=== PATIENT | male | born 1990 | race Caucasian/White ===

== ENCOUNTER 2017-07-06 11:56 | Observation (INO) | payer OTHER ==
--- NOTE | 2017-07-06 12:53 | EDPHY ---
H & P Stated Complaint: cat bite r arm/hand sat seen [facility]/on augmentin/not better Time Seen by Provider: 07/06/17 12:53 HPI/ROS: HPI: This is a 27-year-old male who presents with Chief Complaint: cat bite r arm/hand sat seen [facility]/on augmentin/not better Location: Right hand Quality: Cat bite Duration: Infection Signs and Symptoms: No bleeding, no radiation, no numbness, no weakness, no tingling, no incontinence, no decreased range of motion, no swelling, no pain Timing: Worsening Severity: Moderate Context: Patient is right-hand dominant, bit by a cat of his friends Tuesday evening. CT was up-to-date on vaccinations. Went to [facility] on Tuesday; given tetanus booster and started on Augmentin. Patient reports there is no improvement in the infection in his hand since that time. [facility] and they were concerned so sent to the emergency room. Patient reports worsening pain/warmth/redness since Tuesday. Denies paresthesias/weakness. Modifying Factors: See above Comment: ROS: see HPI Constitutional: No fever, no chills, no weight loss Eyes: No blurred vision Respiratory: No shortness of breath, no cough Cardiovascular: No chest pain Gastrointestinal: No nausea, no vomiting no diarrhea Genitourinary: No dysuria Extremities: No myalgias Neurologic: No weakness, no numbness Skin: No rashes Hematologic: No bruising, no bleeding MEDICAL/SURGICAL/SOCIAL HISTORY: Medical history: Generally healthy. Does not take any regular medications. Surgical history: Denies Social history: Student CONSTITUTIONAL: Polite and cooperative young adult white male, awake and alert , no obvious distress HEENT: Atraumatic and normocephalic, PERRL, EOMI. Tympanic membranes clear. Oropharynx clear, no exudate and moist pink mucosa. Airway patent. No lymphadenopathy. No meningismus. Cardiovascular: Normal S1/S2, regular rate, regular rhythm, without murmur rub or gallop. PULMONARY/CHEST: Symmetrical and nontender. Clear to auscultation bilaterally. Good air movement. No accessory muscle usage. ABDOMEN: Soft, nondistended, nontender, no rebound, no guarding, no peritoneal signs, no masses or organomegaly. No CVAT. EXTREMITIES: 2/2 pulses, strength 5/5, right hand dorsal aspect shows moderate/ erythema/warm/tenderness extending into fingers; appreciate to bite camacho with some increased induration around the; not able to palpate any fluctuance; no deformities, no clubbing, no cyanosis or edema. NEUROLOGICAL: no focal neuro deficits. GCS 15. SKIN: Warm and dry, no erythema. no rash. Good capillary refill. Source: Patient Exam Limitations: No limitations - Personal History Current Tetanus/Diphtheria Vaccine: Yes - Medical/Surgical History Hx Asthma: No Hx Chronic Respiratory Disease: No Hx Diabetes: No Hx Cardiac Disease: No Hx Renal Disease: No Hx Cirrhosis: No Hx Alcoholism: No Hx HIV/AIDS: No Hx Splenectomy or Spleen Trauma: No Other PMH: denies - Social History Smoking Status: Never smoked Constitutional: Initial Vital Signs Temperature (C) 36.8 C 07/06/17 11:59 Heart Rate 73 07/06/17 11:59 Respiratory Rate 18 07/06/17 11:59 Blood Pressure 141/78 H 07/06/17 11:59 O2 Sat (%) 94 07/06/17 11:59 O2 Delivery Mode Room Air Allergies/Adverse Reactions: No Known Allergies Allergy (Unverified 07/06/17 11:58) Home Medications: Medication Instructions Recorded Augmentin 875 MG TAB (*) 07/06/17 Medical Decision Making ED Course/Re-evaluation: Labs, blood cultures, IV medications ordered Given 1 L normal saline and IV clindamycin No signs of neurovascular compromise/tenting of skin/compartment syndrome/ extremities and joints examined above and below area of concern and are neurovascularly intact. Patient has failed outpatient medication therapy and will need to be admitted to the hospital for IV antibiotics, hand consult. 1345: ED decision to consult for admission. Spoke with Isha who assigns patient to Dr. Powell. Remaining labs pending at time of consult. This patient was seen under the supervision of my secondary supervising physician. I evaluated care for this patient independently. Discussed this patient with Dr. Reyes who did not see the patient. Differential Diagnosis: Differential diagnosis includes but is not limited to cellulitis, abscess, thrombophlebitis. - Data Points Laboratory Results: Laboratory Results 07/06/17 13:08 07/06/17 07/06/17 07/06/17 13:08 13:08 13:08 WBC 5.36 10^3/uL 10^3/uL (3.80-9.50) RBC 5.48 10^6/uL 10^6/uL (4.40-6.38) Hgb 17.1 g/dL g/dL (13.7-17.5) Hct 47.6 % % (40.0-51.0) MCV 86.9 fL fL (81.5-99.8) MCH 31.2 pg pg (27.9-34.1) MCHC 35.9 g/dL g/dL (32.4-36.7) RDW 12.2 % % (11.5-15.2) Plt Count 220 10^3/uL 10^3/uL (150-400) MPV 9.6 fL fL (8.7-11.7) Neut % (Auto) 59.5 % % (39.3-74.2) Lymph % (Auto) 30.8 % % (15.0-45.0) [place] % (Auto) 7.1 % % (4.5-13.0) Eos % (Auto) 1.7 % % (0.6-7.6) Baso % (Auto) 0.7 % % (0.3-1.7) Nucleat RBC Rel Count 0.0 % % (0.0-0.2) Absolute Neuts (auto) 3.19 10^3/uL 10^3/uL (1.70-6.50) Absolute Lymphs (auto) 1.65 10^3/uL 10^3/uL (1.00-3.00) Absolute Monos (auto) 0.38 10^3/uL 10^3/uL (0.30-0.80) Absolute Eos (auto) 0.09 10^3/uL 10^3/uL (0.03-0.40) Absolute Basos (auto) 0.04 10^3/uL 10^3/uL (0.02-0.10) Absolute Nucleated RBC 0.00 10^3/uL 10^3/uL (0-0.01) Immature Gran % 0.2 % % (0.0-1.1) Immature Gran # 0.01 10^3/uL 10^3/uL (0.00-0.10) ESR 5 MM/HR MM/HR (0-15) VBG Lactic Acid 1.8 mmol/L mmol/L (0.7-2.1) Sodium Pending Potassium Pending Chloride Pending Carbon Dioxide Pending Anion Gap Pending BUN Pending Creatinine Pending Estimated GFR Pending Glucose Pending Calcium Pending C-Reactive Protein Pending Medications Given: Discontinued Medications Clindamycin Phosphate/Dextrose (Cleocin 600 Mg (Premix)) 50 mls @ 100 mls/hr IV EDNOW ONE PRN Reason: Protocol Stop: 07/06/17 13:27 Last Admin: 07/06/17 13:28 Dose: 50 mls Sodium Chloride (Ns) 1,000 mls @ 0 mls/hr IV ONCE ONE; Wide Open PRN Reason: Protocol Stop: 07/06/17 12:59 Last Admin: 07/06/17 13:28 Dose: 1,000 mls Departure - Departure Disposition: [facility] Inpatient Acute Clinical Impression: Cellulitis of right hand Cat bite of hand Qualifiers: Encounter type: initial encounter Laterality: right Qualified Code(s): S61.451A - Open bite of right hand, initial encounter; W55.01XA - Bitten by cat , initial encounter; W55.01XA - Bitten by cat, initial encounter Condition: Fair
[2017-07-06] MEDS ORDERED: NS 1,000 ML IV ONE (12:58)
[2017-07-06] MEDS ORDERED: CLINDAMYCIN 600 MG/DEXTROSE 50 ML IV ONE (12:58)
[2017-07-06 13:19] LABS: PLATELET COUNT 220 10^3/uL (150-400)
[2017-07-06] MEDS ORDERED: ACETAMINOPHEN 325 MG TAB PO PRN (14:34)
[2017-07-06] MEDS ORDERED: ONDANSETRON 4 MG/2 ML VIAL IVP PRN (14:34)
[2017-07-06] MEDS ORDERED: ONDANSETRON DISINTEGRATING 4 MG TAB PO PRN (14:34)
--- NOTE | 2017-07-06 14:54 | GHP ---
[f rep st] HISTORY AND PHYSICAL DATE OF ADMISSION: 07/06/2017 CHIEF COMPLAINT: Cat bite right wrist. HISTORY OF PRESENT ILLNESS: A 27-year-old had a cat bite on right wrist 5 days ago. ____ started antibiotics 2 days ago and has not had much improvement. denies any fevers or chills. can move fingers fairly normally. No other complaints. REVIEW OF SYSTEMS: A 10-point review of systems was obtained, and other than as stated, was negative . PAST MEDICAL HISTORY: None. MEDICATIONS: Advil, Tylenol, and Augmentin. SOCIAL HISTORY: No smoking. Occasional alcohol. FAMILY HISTORY: Reviewed, noncontributory. PHYSICAL EXAM: VITAL SIGNS: Afebrile, blood pressure is 141/78, heart rate 73, oxygen saturation 94 % on room air. GENERAL: The patient is well developed, no apparent distress. HEENT: Nonicteric sc lerae. Extraocular movements intact. Moist mucous membranes. NECK: Supple. No thyromegaly. LUNG S: Good effort. Clear to auscultation bilaterally. CARDIOVASCULAR: Regular rate and rhythm. No m urmurs, gallops. ABDOMEN: Positive bowel sounds. Soft, nontender, nondistended. No hepatosplenome remedios. EXTREMITIES: Right wrist has puncture camacho and erythema that is extending several inches on either side. Erythema looks more inflammatory than cellulitic. is able to move all 4 dig its normally and has a 2+ radial pulse. NEUROLOGIC: Alert and oriented x3. Moving all 4 extremitie s equally. PSYCH: Normal mood and affect. LABS: White blood cell count not elevated at all. Lactate is normal. Chemistries normal. CRP is l ess than 5. ASSESSMENT: This is a 27-year-old presenting with a cat bite. PLAN: Cat bite with probable cellulitis. I actually think that a lot of the erythema is more inflam matory than actual infection. The patient has been given IV clindamycin, but will continue with the beta-lactam and give IV Unasyn while is here in the hospital. We will continue to use ant i-inflammatories and see how is feeling. I also ordered a procalcitonin to see where that may be. Probably can discharge tomorrow. /[id number]/MODL
[2017-07-06 16:07] VITALS: RESP 16
[2017-07-06] MEDS: KETOROLAC 15 MG/1 ML SDV IVP SCH ×2 (17:44→23:45)
[2017-07-06] MEDS: AMPICILLIN/SULBACTAM 3 GM VIAL IV SCH ×2 (17:52→23:46)
[2017-07-06 23:08] VITALS: O2SAT 98
[2017-07-07] MEDS: KETOROLAC 15 MG/1 ML SDV IVP SCH (05:51)
[2017-07-07] MEDS: AMPICILLIN/SULBACTAM 3 GM VIAL IV SCH (05:52)
[2017-07-07 07:44] VITALS: BP 136/95; PULSE 68; TEMP 97.6
--- NOTE | 2017-07-07 14:49 | GDS ---
[f rep st] DISCHARGE SUMMARY DISCHARGE DIAGNOSIS: Cat bite with right wrist cellulitis. HISTORY: This is a 27-year-old male who had a cat bite several days ago and had been started on Augm entin 2 days prior to admission with worsening redness. HOSPITAL COURSE: Patient was admitted. His hand looked more inflammatory than cellulitic. White co unt was normal, and he had no fever. Actually, his procalcitonin was also normal. He was treated wi th IV Unasyn, as well as nonsteroidals. The following day, his hand looked much better. I think shey t he can be managed outpatient with oral antibiotics. FOLLOWUP INSTRUCTIONS: He is instructed to follow up with his primary care doctor and to return if h e has worsening redness. /[id number]/MODL
== END 2017-07-07 11:09 | disposition home or self-care (01) ==
LOC: INTOOBSV 13:42 → F3E 15:59
PROVIDERS: ADMIT Internal Medicine; ATTEND Internal Medicine
DX: L03.113 Cellulitis of right upper limb (principal); W55.01XA Bitten by cat, initial encounter
CPT/HCPCS: 96374; 99285; G0378; J0295; J1885